=== PATIENT | male | born 1930 | race African-American/Black ===

== ENCOUNTER 2016-12-24 14:05 | Emergency (ER) | payer MEDICARE, OTHER ==
[~2016-12-24 14:05] MED LIST: ACET325T9 PO; AMLO10TA2 PO; AMLO5TAB4 PO; ARGI1POW19 PO; ASCO500T PO; ATOR20TA58 PO; BISA-42 PR; BISA-42 RC; CARV3.122 PO; CLON0.2T PO; CLON0.3T PO; CYCL1DRO EACHEYE; CYCL1DRO OP; FENT1PAT13 TD; FINA5TAB4 PO; FURO-69 PO; GABA-585 PO; HYDR-2868 PO; HYDR30CR61 TP; INSU100I17 SQ; INSU100I18 SQ; INSU100V31 SQ; LACT20SO PO; LATA2.5D3 OU; LEVO125T PO; LEVO25TA2 PO; LIDO700A4 TP; LORA0.5T96 PO; LOSA100T6 PO; LOSA1TAB18 PO; MAGN400O4 PO; MULT-208 PO; OXYC1TAB7 PO; POLY17PO5 PO; SENN-6 PO; TAMS0.4C97 PO; TIMO5DRO26 EACHEYE; VENL37.5 PO; WARF3TAB PO; WARF4TAB PO; lacrilube EACHEYE
[2016-12-24] MEDS ORDERED: IV NORMAL SALINE 500ML BAG 500 ML IV ONE (14:45)
[2016-12-24 14:57] LABS: BASO % 1 % (0-3); EOS % 2 % (0-3); HEMATOCRIT 31.3 % (39.0-53.0); HEMOGLOBIN 10.1 g/dL (13.0-17.5); LYMPH # 0.8 x10^3/uL (1.0-4.8); LYMPH % 11 % (24-48); MEAN CORPUSCULAR HEMOGLOBIN 27 pg (25-35); MEAN CORPUSCULAR HGB CONC 32 g/dL (31-37); MEAN CORPUSCULAR VOLUME 84 fL (79-100); MONO % 7 % (0-9); NEUT % 79 % (31-73); PLATELET COUNT 125 x10^3/uL (140-400); RED BLOOD COUNT 3.73 x10^6/uL (4.30-5.70); RED CELL DISTRIBUTION WIDTH 19.3 % (11.5-14.5); WHITE BLOOD COUNT 7.2 x10^3/uL (4.0-11.0)
[2016-12-24 15:14] LABS: CALCIUM 8.8 mg/dL (8.5-10.1); CREATININE 1.8 mg/dL (0.7-1.3); GFR 43.5; POTASSIUM 4.6 mmol/L (3.5-5.1)
[2016-12-24 15:19] LABS: DIRECT BILIRUBIN 0.2 mg/dL (0.0-0.2); TOTAL BILIRUBIN 0.6 mg/dL (0.2-1.0); TOTAL PROTEIN 7.2 g/dL (6.4-8.2)
--- NOTE | 2016-12-24 15:21 | RAD ---
CT of the head without contrast, 12/24/2016: History: Altered mental status Comparison is made to a study from 04/22/2016. 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 There are moderate patchy lucencies in the deep white matter bilaterally compatible with chronic ischemic change. There is moderate cerebral atrophy. The ventricles are mildly prominent on a compensatory basis. There is no shift of the midline structures. There is no evidence of acute intracranial hemorrhage or mass effect. IMPRESSION: 1. Chronic findings as described above. 2. No acute intracranial abnormality is detected. PQRS Compliance Statement: One or more of the following individualized dose reduction techniques were utilized for this examination: 1. Automated exposure control 2. Adjustment of the mA and/or kV according to patient size 3. Use of iterative reconstruction technique
--- NOTE | 2016-12-24 15:23 | RAD ---
Portable abdomen series with chest, 3 views, 12/24/2016: History: Abdominal pain, pneumonia A gastrostomy tube overlies the left upper quadrant. There is gas in large and small bowel in a nonspecific pattern. There is a moderate amount of stool in the right colon. No free air seen in the abdomen. There are scattered vascular calcifications. The heart is enlarged. There is calcific plaquing of the aorta. The pulmonary vascularity is now congested. Moderate basilar opacities have developed compatible with infiltrate and probable pleural fluid. IMPRESSION: 1. A gastrostomy tube is in place. 2. No acute abdominal abnormality is detected. 3. Cardiomegaly with vascular congestion. 4. Pleural effusions and moderate basilar infiltrates have developed, probably due to congestive heart failure. A component of pneumonia cannot be excluded.
[2016-12-24 16:31] LABS: BILIRUBIN,URINE NEGATIVE (NEG); GLUCOSE,URINE NEGATIVE (NEG); NITRITE,URINE NEGATIVE (NEG); PROTEIN,URINE 30 mg/dL (NEG-TRACE)
[2016-12-24 16:43] LABS: BACTERIA,URINE 0 /HPF (0-FEW); RBC,URINE 0 /HPF (0-2); SQUAMOUS EPITHELIAL CELL,UR OCC /LPF; WBC,URINE OCC /HPF (0-4)
--- NOTE | 2016-12-24 18:14 | ED.ADGEN ---
Past Medical History Past Medical History: A-Fib, Anemia, Anxiety, CAD, CHF, Dementia, Depression, Diabetes-Type II, GERD, Glaucoma, High Cholesterol, Hypertension, Hypothyroid, Pneumonia, Renal Disease, Other Additional Past Medical Histor: PVD, DVT, CHRONIC BACK PAIN, BPH, FALL, ALZHEIMERS, DORSALGIA Past Surgical History: Other Additional Past Surgical Histo: Gtube placement x 1 wwek ago Alcohol Use: None Drug Use: None Adult General Chief Complaint Chief Complaint: ALTERED MENTAL STATUS HPI HPI Patient is a 86 year old male brought to the emergency department by EMS from his care home. Per care home staff they felt like his mental status was more depressed than usual today. They reported to family her some "gurgling" in his mouth. Patient did have a recent pneumonia and PEG tube placement of the last couple of weeks. Most of my history comes from family was at the bedside. They state that he is at his normal baseline mental status. They do believe that his mouth looks dry and he has missed out on some oral care but otherwise and noticed no difference from his normal mental status. Review of Systems Review of Systems Constitutional: Denies fever or chills. [] Eyes: Denies change in visual acuity. [] HENT: Denies nasal congestion or sore throat. [] Respiratory: Denies cough or shortness of breath. [] Cardiovascular: Denies chest pain or edema. [] GI: Denies abdominal pain, nausea, vomiting, bloody stools or diarrhea. [] : Denies dysuria. [] Musculoskeletal: Denies back pain or joint pain. [] Integument: Denies rash. [] Neurologic: Denies headache, focal weakness or sensory changes. [] Endocrine: Denies polyuria or polydipsia. [] Lymphatic: Denies swollen glands. [] Psychiatric: Denies depression or anxiety. [] Current Medications Current Medications Current Medications Medications (Trade) Dose Ordered Sig/Xena Start Time Stop Time Status Last Admin Dose Admin Sodium Chloride (Iv Sodium Chloride 0.9% 500ml Bag) 500 ml @ 500 mls/hr 1X ONCE 12/24/16 14:45 12/24/16 15:44 DC 12/24/16 14:54 500 MLS/HR Allergies Allergies Allergies Coded Allergies Type Severity Reaction Last Updated Verified No Known Drug Allergies 12/24/16 No Physical Exam Physical Exam Constitutional: Chronically ill, well nourished, no acute distress, non-toxic appearance. [] HENT: Normocephalic, atraumatic, bilateral external ears normal, oropharynx moist, no oral exudates, nose normal. [] Eyes: PERRLA, EOMI, conjunctiva normal, no discharge. [] Neck: Normal range of motion, no tenderness, supple, no stridor. [] Cardiovascular:Heart rate regular rhythm, no murmur [] Lungs & Thorax: Bilateral breath sounds clear to auscultation [] Abdomen: Bowel sounds normal, soft, no tenderness, no masses, no pulsatile masses. PEG tube site looks well distress and no signs of infection [] Skin: Warm, dry, no erythema, no rash. [] Back: No tenderness, no CVA tenderness. [] Extremities: No tenderness, no cyanosis, no clubbing, ROM intact, no edema. [] Neurologic: Alert, decreased tone and muscle strength throughout, normal sensory function, no focal deficits noted. [] Psychologic: Affect normal, judgement normal, mood normal. [] Current Patient Data Vital Signs Vital Signs Date Time Temp Pulse Resp B/P Pulse Ox O2 Delivery O2 Flow Rate FiO2 12/24/16 17:16 78 19 128/67 96 Nasal Cannula 2 12/24/16 14:05 98.1 98.1 Lab Values Laboratory Tests Test 12/24/16 14:25 12/24/16 16:10 White Blood Count 7.2x10^3/uL (4.0-11.0) Red Blood Count 3.73x10^6/uL (4.30-5.70) L Hemoglobin 10.1g/dL (13.0-17.5) L Hematocrit 31.3% (39.0-53.0) L Mean Corpuscular Volume 84fL (79-100) Mean Corpuscular Hemoglobin 27pg (25-35) Mean Corpuscular Hemoglobin Concent 32g/dL (31-37) Red Cell Distribution Width 19.3% (11.5-14.5) H Platelet Count 125x10^3/uL (140-400) L Neutrophils (%) (Auto) 79% (31-73) H Lymphocytes (%) (Auto) 11% (24-48) L Monocytes (%) (Auto) 7% (0-9) Eosinophils (%) (Auto) 2% (0-3) Basophils (%) (Auto) 1% (0-3) Neutrophils # (Auto) 5.7x10^3uL (1.8-7.7) Lymphocytes # (Auto) 0.8x10^3/uL (1.0-4.8) L Monocytes # (Auto) 0.5x10^3/uL (0.0-1.1) Eosinophils # (Auto) 0.2x10^3/uL (0.0-0.7) Basophils # (Auto) 0.0x10^3/uL (0.0-0.2) Sodium Level 152mmol/L (136-145) H Potassium Level 4.6mmol/L (3.5-5.1) Chloride Level 114mmol/L (98-107) H Carbon Dioxide Level 36mmol/L (21-32) H Anion Gap 2 (6-14) L Blood Urea Nitrogen 50mg/dL (8-26) H Creatinine 1.8mg/dL (0.7-1.3) H Estimated GFR (Cockcroft-Gault) 43.5 Glucose Level 212mg/dL (70-99) H Calcium Level 8.8mg/dL (8.5-10.1) Total Bilirubin 0.6mg/dL (0.2-1.0) Direct Bilirubin 0.2mg/dL (0.0-0.2) Aspartate Amino Transferase (AST) 32U/L (15-37) Alanine Aminotransferase (ALT) 28U/L (16-63) Alkaline Phosphatase 160U/L (46-116) H Troponin I Quantitative < 0.017ng/mL (0.000-0.055) OB-Vct-H-Type Natriuretic Peptide 29739wq/mL (0-449) H Total Protein 7.2g/dL (6.4-8.2) Albumin 2.0g/dL (3.4-5.0) L Lipase 94U/L (73-393) Urine Collection Type U cath Urine Color Yellow Urine Clarity Clear Urine pH 7.0 Urine Specific [place] 1.015 Urine Protein 30mg/dL (NEG-TRACE) Urine Glucose (UA) Negativemg/dL (NEG) Urine Ketones (Stick) Negativemg/dL (NEG) Urine Blood Negative (NEG) Urine Nitrite Negative (NEG) Urine Bilirubin Negative (NEG) Urine Urobilinogen Dipstick 1.0mg/dL (0.2 mg/dL) Urine Leukocyte Esterase Trace (NEG) Urine RBC 0/HPF (0-2) Urine WBC Occ/HPF (0-4) Urine Squamous Epithelial Cells Occ/LPF Urine Transitional Epithelial Cells Occ/LPF Urine Bacteria 0/HPF (0-FEW) Laboratory Tests 12/24/16 14:25 Laboratory Tests 12/24/16 14:25 EKG EKG [] Radiology/Procedures Radiology/Procedures CT of the head without contrast, 12/24/2016: History: Altered mental status Comparison is made to a study from 04/22/2016. 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 There are moderate patchy lucencies in the deep white matter bilaterally compatible with chronic ischemic change. There is moderate cerebral atrophy. The ventricles are mildly prominent on a compensatory basis. There is no shift of the midline structures. There is no evidence of acute intracranial hemorrhage or mass effect. IMPRESSION: 1. Chronic findings as described above. 2. No acute intracranial abnormality is detected. PQRS Compliance Statement: One or more of the following individualized dose reduction techniques were utilized for this examination: 1. Automated exposure control 2. Adjustment of the mA and/or kV according to patient size 3. Use of iterative reconstruction technique DICTATED and SIGNED BY: GONZÁLEZ LATHAM MD DATE: 12/24/16 1515 CC: SIDDHARTHA HAQ MD; UNKNOWN PCP NAME ~ Portable abdomen series with chest, 3 views, 12/24/2016: History: Abdominal pain, pneumonia A gastrostomy tube overlies the left upper quadrant. There is gas in large and small bowel in a nonspecific pattern. There is a moderate amount of stool in the right colon. No free air seen in the abdomen. There are scattered vascular calcifications. The heart is enlarged. There is calcific plaquing of the aorta. The pulmonary vascularity is now congested. Moderate basilar opacities have developed compatible with infiltrate and probable pleural fluid. IMPRESSION: 1. A gastrostomy tube is in place. 2. No acute abdominal abnormality is detected. 3. Cardiomegaly with vascular congestion. 4. Pleural effusions and moderate basilar infiltrates have developed, probably due to congestive heart failure. A component of pneumonia cannot be excluded. DICTATED and SIGNED BY: GONZÁLEZ LATHAM MD DATE: 12/24/16 6809 CC: SIDDHARTHA HAQ MD; UNKNOWN PCP NAME ~[] Course & Med Decision Making Course & Med Decision Making Pertinent Labs and Imaging studies reviewed. (See chart for details) According to family the patient at his baseline mental status. His vital signs of looks well here in emergency department. His laboratory values are consistent with or even better than they have been previously. I did offer the family to admit the patient overnight for further evaluation and treatment as needed but instead they have opted to come back to the care home. I do not find this to be unreasonable. The patient has significant dementia and very little interaction with those around him. He has no signs of an acute process going on. I did encourage them to return to the emergency Department sooner if he develops any new or worsening symptoms. [] Dragon Disclaimer Dragon Disclaimer This electronic medical record was generated, in whole or in part, using a voice recognition dictation system. SIDDHARTHA HAQ MD Dec 24, 2016 18:14
[2016-12-24 19:16] VITALS: BP 138/72
--- NOTE | 2016-12-25 06:20 | EKG ---
[facility] [address] [place] [address] Test Date: 2016-12-24 Test Time: 14:19:11 Pat Name: MASHA OWENS Department: Room: Gender: M Linotypist: : 1930 Requested By: SIDDHARTHA HAQ Order Number: [id number] Reading MD: Magan Whitney Measurements Intervals [place] Rate: 64 P: DC: QRS: 52 QRSD: 62 T: -70 QT: 372 QTc: 388 Interpretive Statements ATRIAL FIBRILLATION. LOW LIMB LEAD VOLTAGE QRS(T) CONTOUR ABNORMALITY CONSISTENT WITH ANTEROSEPTAL INFARCT AGE UNDETERMINED T ABNORMALITY IN HIGH LATERAL LEADS RI6.01 Unconfirmed report Electronically Signed On 01-01-2017 10:22:42 DRILL SHARPENER OPERATOR by Magan Whitney
== END 2016-12-24 19:40 | disposition home or self-care (01) ==
LOC: ER 14:05
DX: R41.82 Altered mental status, unspecified (principal); F02.80 Dementia in other diseases classified elsewhere, unspecified severity, without behavioral disturbance, psychotic disturbance, mood disturbance, and anxiety; F41.9 Anxiety disorder, unspecified; I25.10 Atherosclerotic heart disease of native coronary artery without angina pectoris; I11.0 Hypertensive heart disease with heart failure; I50.9 Heart failure, unspecified; G89.29 Other chronic pain; G30.9 Alzheimer's disease, unspecified; E78.00 Pure hypercholesterolemia, unspecified; E03.9 Hypothyroidism, unspecified; F32.9 Major depressive disorder, single episode, unspecified; E11.39 Type 2 diabetes mellitus with other diabetic ophthalmic complication; H40.9 Unspecified glaucoma
CPT/HCPCS: 36415; 70450; 74022; 80048; 80076; 81001; 83690; 83880; 84484; 85027; 87086; 93005; 96360; 96361; 99285; J7040

== ENCOUNTER 2017-01-11 06:13 | Emergency (ER) | payer MEDICARE, OTHER ==
--- NOTE | 2017-01-11 06:34 | PHYS DOC ---
Past Medical History Past Medical History: A-Fib, Anemia, Anxiety, CAD, CHF, Dementia, Depression, Diabetes-Type II, GERD, Glaucoma, High Cholesterol, Hypertension, Hypothyroid, Pneumonia, Renal Disease, Other Additional Past Medical Histor: PVD, DVT, CHRONIC BACK PAIN, BPH, FALL, ALZHEIMERS, DORSALGIA Past Surgical History: Other Additional Past Surgical Histo: Gtube placement x 1 wwek ago Alcohol Use: None Drug Use: None Adult General Chief Complaint Chief Complaint: CPR/FULL ARREST HPI HPI Patient is a 86 year old male who presents to the emergency department in cardiac arrest. The patient was last known at baseline at 0500 this morning. Patient comes by EMS from [facility]. EMS was called to the scene and started CPR at 0547 after patient had been noted to be unresponsive by staff. The patient was found in asystole. The patient was then intubated and started on CPR by EMS prior to arrival. Patient has history of multiple comorbidities. The patient received a total of 25 minutes of CPR prior to arrival with no return of an organized rhythm. No further history available at time of arrival. Review of Systems Review of Systems Unable to obtain due to cardiac arrest Allergies Allergies Allergies Coded Allergies Type Severity Reaction Last Updated Verified No Known Drug Allergies 12/24/16 No Physical Exam Physical Exam Constitutional: Unresponsive, intubated, CPR in progress. [] HENT: Normocephalic, atraumatic, bilateral external ears normal, endotracheal tube in place, no oral exudates, nose normal. [] Eyes: Pupils 4 mm and fixed, conjunctiva normal, no discharge. [] Neck: Trachea midline, no stridor Cardiovascular: No audible cardiac tones Lungs & Thorax: No spontaneous respirations, air movement equal bilaterally with assisted ventilations [] Abdomen: Distended, no gastric sounds with ventilations. [] Skin: Cool, dry, no rash. [] Extremities: No deformities, no clubbing, no peripheral pulses upon stoppage of CPR. [] Neurologic: Unresponsive. [] EKG EKG Initial rhythm strip: Asystole [] Radiology/Procedures Radiology/Procedures Not performed [] Course & Med Decision Making Course & Med Decision Making Pertinent Labs and Imaging studies reviewed. (See chart for details) Refer to CODE BLUE sheet for details of drugs administered. Patient was continued on CPR for an additional 10 minutes in the emergency department. Despite aggressive therapy the patient remained in asystole. Total down time was 35 minutes. Ultrasound was applied to the patient's chest which showed occasional twitching of cardiac muscle and no perfusable beats. Time of was called at 0622. Family was informed immediately after time of . I spoke with the patient's primary physician, Dr. Zhang, at 0702. He agreed to sign the certificate. I spoke with Dr. Bearden, medical assistant float, as 0728 who confirmed that the patient would not need autopsy and agreed to allow Dr. Zhang to sign the certificate. Critical care time excluding procedures: 35 minutes [] Dragon Disclaimer Dragon Disclaimer This electronic medical record was generated, in whole or in part, using a voice recognition dictation system. Departure Departure Impression: Primary Impression: Cardiac arrest Disposition: 20 Condition: Referrals: UNKNOWN PCP NAME (PCP) HUONG NAZARIO MD Jan 11, 2017 06:34
[2017-01-11] MEDS ORDERED: SODIUM BICARB ADULT 8.4% 50 MEQ/50 ML DISP.SYRIN. ONE (15:00)
[2017-01-11] MEDS ORDERED: CALCIUM CHLORIDE 1,000 MG/10 ML DISP.SYRIN IV ONE (15:00)
[2017-01-11] MEDS ORDERED: EPINEPHRINE 1 MG/10 ML DISP.SYRIN. ONE (15:00)
== END 2017-01-11 10:02 | disposition expired ==
LOC: ER 06:13
DX: I46.9 Cardiac arrest, cause unspecified (principal); F41.9 Anxiety disorder, unspecified; F32.9 Major depressive disorder, single episode, unspecified; F03.90 Unspecified dementia, unspecified severity, without behavioral disturbance, psychotic disturbance, mood disturbance, and anxiety; E03.9 Hypothyroidism, unspecified; E11.9 Type 2 diabetes mellitus without complications; E78.00 Pure hypercholesterolemia, unspecified; I11.0 Hypertensive heart disease with heart failure; I50.9 Heart failure, unspecified; F02.80 Dementia in other diseases classified elsewhere, unspecified severity, without behavioral disturbance, psychotic disturbance, mood disturbance, and anxiety; G89.29 Other chronic pain; G30.9 Alzheimer's disease, unspecified; I25.10 Atherosclerotic heart disease of native coronary artery without angina pectoris; I48.91 Unspecified atrial fibrillation; K21.9 Gastro-esophageal reflux disease without esophagitis; N40.0 Benign prostatic hyperplasia without lower urinary tract symptoms; Z87.01 Personal history of pneumonia (recurrent)
CPT/HCPCS: 92950; 99291; J0171; J3490